=== PATIENT | male | born 2000 | race Caucasian/White ===

== ENCOUNTER 2023-11-06 17:40 | Emergency (ER) | payer BC, SELFPAY ==
[2023-11-06 17:44] VITALS: BP 143/90
--- NOTE | 2023-11-06 18:03 | ED.GENMED ---
History of Present Illness
General
Chief Complaint: Head Injury
Time Seen by Provider: 11/06/23 18:03
Travel History
Have you had any contact with someone who has COVID-19?: No
Do you have any symptoms of coronavirus? Fever > 100 degrees, chills, cough, shortness of breath, sore throat, loss of taste or smell, muscle aches, or headache?: No
History of Present Illness
History of Present Illness:
HPI: Patient fell while snowboarding struck the right side of his head. He has had no nausea or vomiting and denies any neck pain. He states he was not helmeted. He had a minimal headache initially that is continuing to improve. He never had
loss of consciousness. He has no other symptoms. He does not feel confused. He does not feel tired. He is tells me that he would not of come here if it was not for having the laceration
EXAM:
GENERAL: Well appearing in no distress
CERVICAL SPINE: No midline c-spine tenderness with excellent AROM
HEAD: He has a 5 cm laceration to the right side of the scalp, there is no hematoma
CHEST: No chest wall tenderness
LUNGS: No respiratory distress
ABDOMEN: No abdominal tenderness, no peritoneal signs
EXTREMITIES: Normal active range of motion, no tenderness
NEURO: Excellent strength all extremities, appropriate mental status, normal speech/language
ED COURSE:
6:30 PM: I initially evaluated patient
NUMBER AND COMPLEXITY OF PROBLEMS ADDRESSED AT THE ENCOUNTER
� Chronic conditions affecting care: No significant past medical history
� Acute Exacerbation and/or Progression of Chronic Illness: This is an acute problem
� Differential Diagnosis includes: Minor head injury, concussion, scalp laceration, highly doubt intracranial hemorrhage given young age and lack of other
AMOUNT AND/OR COMPLEXITY OF DATA TO BE REVIEWED AND ANALYZED
� I performed an independent evaluation of and my interpretation is:
EKG:
CT:
X-rays:
Laboratory Studies:
Other:
� Review of other/old records:
� Clinical information was obtained by an independent historian: I spoke to girlfriend at bedside
� Prescriptions/Medications Considered but not given:
� Further testing considered but not performed: Considered and offered CT imaging of the brain to evaluate for head bleed given the patient's mechanism which I discussed with patient is somewhat high risk. The patient elected to
hold off on CT imaging as he has no symptoms which I feel is reasonable at this time. He was encouraged to return if worse.
RISK OF COMPLICATIONS AND/OR MORBIDITY OR MORTALITY OF PATIENT MANAGEMENT
� Social determinants of health affecting care: Lives at home
� Discussion with other providers: None needed
� Escalation of care including admission/observation vs risk of discharge considered: Laceration repaired and cleaned. CT imaging discussed as above. He has a GCS of 15 at time of discharge with no significant symptoms.
Past History
Past History
ED Past Medical History: None
ED Past Surgical History: None
Patient has exhibited threatening behavior?: No
Social History
Tobacco: Non-smoker
Drug: None
Personal: Single
Living: with family
Employment: Employed
Phy Exam
Physical Exam
Physical Exam:
6
Course
Orders/Labs/Results
Orders:
Orders
11/06/23 19:04
Tetanus/Diphth/Acelpertussis [Adacel] 0.5 ml IM .ONCE ONE
Vital Signs
Initial and Last Documented VS:
Initial Vital Signs
Temp Pulse Resp BP Pulse Ox
98.4 F 93 18 143/90 99
11/06/23 17:44 11/06/23 17:44 11/06/23 17:44 11/06/23 17:44 11/06/23 17:44
Last Documented Vital Signs
Temp Pulse Resp BP Pulse Ox
98.4 F 93 18 143/90 99
11/06/23 17:44 11/06/23 17:44 11/06/23 17:44 11/06/23 17:44 11/06/23 17:44
Procedures
Laceration Closure
Right Lateral Face:
Description of Wound Edges: ragged
Preparation: cleaned with saline
Anesthesia: 1% Lidocaine with epi
Revision/Debridement: routine- no revision
Type of Closure: single layer closure
Skin Closure Material: 5-0 nylon
Number of sutures: 7
*Critical Care Note
Total Time (30-74mins, 75-104mins- exclusive of procedures): Not Applicable
ED Attending Note
-
Portions of this chart may have been created with voice recognition software.� Occasional wrong word or��sound alike� substitutions may have occurred due to the inherent limitations of voice recognition software.
Discharge Plan
Departure
Patient Disposition: Home (Routine Discharge)
Date of Disposition: 11/06/23
Time of Disposition: 19:03
Patient with high blood pressure during this ER visit?: Yes
Discharge Problem:
Laceration
Instructions: Laceration Repair With Stitches (DC)
Prescriptions:
No Action
sulfamethoxazole-trimethoprim 1 TABLET tablet
1 tab PO BID Qty: 20 0RF
Referrals:
UNKNOWN - PT DOES,NOT KNOW [Family Provider] -
Activity Restrictions/Additional Instructions:
I recommend he have the stitches removed by your primary care doctor in approximately 7 days. Return here if worse. Return here especially if you have worsening headache, recurrent vomiting, confusion, or decreased level of consciousness.
Interventions
Interventions:
*Risk Screen - Suicide Last Done: 11/06/23 17:44
*General Assessment Last Done: 11/06/23 17:44
*Neglect/Abuse Screening Last Done: 11/06/23 17:44
*ED COVID-19 Vaccine History Last Done: 11/06/23 17:44
[2023-11-06] MEDS: ADACEL 0.5 ML IM (19:08)
[2023-11-06 19:12] VITALS: BP 135/86
== END 2023-11-06 19:19 | disposition home or self-care (01) ==
LOC: EMR 17:40
PROVIDERS: EMERGENCY PHYSICIAN Emergency Medicine
DX: S01.01XA Laceration without foreign body of scalp, initial encounter (principal); S09.90XA Unspecified injury of head, initial encounter; V00.311A Fall from snowboard, initial encounter; Y93.23 Activity, snow (alpine) (downhill) skiing, snowboarding, sledding, tobogganing and snow tubing; Z23 Encounter for immunization
CPT/HCPCS: 99282; 12011; 90471; 12001; 90715